=== PATIENT | female | born 1950 | race Caucasian/White ===

== ENCOUNTER 2025-06-22 08:15 | Outpatient (AMB) | payer OTHER, SELFPAY ==
--- NOTE | 2025-06-22 08:28 | A.OFFVIS_ITS ---
Intake Visit Reasons: 1 YR follow up Allergies estrogens, conjugated Allergy (Unknown, Verified 06/22/25 08:34) Unknown Medication List - Last Reconciled 06/22/25 by Belem Selby CNP hydrochlorothiazide 12.5 mg PO DAILY irbesartan 150 mg PO DAILY HPI Comments Details: She was doing okay. No new MS symptoms. Bothered by heat as she feels exhausted. Balance was off at times, but no falls. Vision was okay. Sleep was usually okay, using CPAP. She was spending weekdays at [employer] in [place] with . MRI 05/27/21 showed 6-7 lesions consistent with MS. No enhancing lesions. She was diagnosed as having mild multiple sclerosis in 1978 and had right optic neuritis in 1982 with good recovery in 3 months. Over the years, she has had episodes where the vision in the right eye goes down, some watering, and last for a month. She had an episode in 2005 and another one a few years later and has had tightness in that right RA and off-and-on blurring since December 2019 because she's been under stress, which usually triggers it. She has no other neurological complaints. She has never been treated with disease modifying therapy is for MS. [facility] Medical History (Updated 06/22/25 @ 08:33 by Belem Selby CNP) Hypertension Multiple sclerosis Optic neuritis Review of Systems Const Denies chills, Denies daytime sleepiness, Denies difficulty sleeping, Denies fatigue, Denies fever(s), Denies frequent falls, Denies headache(s), Denies increased appetite, Denies poor appetite, Denies snoring, Denies weakness, Denies weight gain and Denies weight loss Eyes Denies loss of vision ENT Denies vertigo, Denies dizziness, Denies headache(s) and Denies neck pain Card Denies chest pain at rest, Denies chest pain with activity, Denies syncope, Denies leg edema, Denies palpitations, Denies dyspnea and Denies dyspnea on exertion Resp Denies cough, Denies dyspnea, Denies dyspnea on exertion and Denies snoring GI Denies abdominal pain, Denies constipation, Denies heartburn, Denies diarrhea and Denies nausea Denies urinary frequency, Denies urinary incontinence and Denies urinary urgency Musc Denies abnormal gait, Denies back pain, Denies myalgias, Denies arthralgias, Denies neck pain, Denies numbness and Denies tingling Neuro Denies abnormal gait, Denies vertigo, Denies dizziness, Denies syncope, Denies frequent falls, Denies headache(s), Denies lack of coordination, Denies loss of vision, Denies memory loss, Denies numbness, Denies Other visual disturbances, Denies restless legs, Denies seizure-like activity, Denies tingling, Denies paresthesias, Denies tremor(s), Denies weakness and Reports other (balance difficulty) Psych Denies anxiety, Denies depression, Denies auditory hallucinations, Denies memory loss and Denies visual hallucinations Endo Denies fatigue and Denies palpitations Physical Exam Const Other: General Appearance:? normal, in no acute distress. Heart:? S1, S2 normal, no murmurs. Lungs:? clear anteriorly and posteriorly. Musculoskeletal:? normal. Extremities:? no edema. Psych:? alert, oriented, cognitive function intact, cooperative with exam. Neuro Other: Abnormal Neurological Findings:?R Vivek Ivone pupil.? Mental Status: alert and oriented X 3. Normal attention, orientation, memory, and affect. Cranial Nerves: Pupils are equal, round, and reactive to light. R Vivek Ivone pupil. External ocular muscles are intact. Visual perdue are full, no ptosis. Face is symmetrical, no facial weakness or droop. Facial sensations are normal. Tongue protrudes in midline. Palate elevates symmetrically. Shoulder shrugging is normal Motor Examination: Normal muscle tone, bulk and strength. No atrophy or fasciculations. No drift of the extended upper extremities. DTR 2+. Plantars are flexor. Sensory Exam: Normal light touch, temperature, pinprick, vibration, and joint- position sensations. Rhomberg sign is absent. Coordination: No ataxia. No titubation. Gait Exam: Within normal limits. Cerebellar Signs: [id number] is okay. Extrapyramidal System: No tremor, rigidity with normal facial expressions. No bradykinesia. No bradyphrenia. Normal arm swing and posture. No propulsion or retropulsion. Speech: Normal. Results Reviewed Results Reviewed: 05/11/20 MRI c/w MS . No enhancing lesions. 05/27/21 MRI stable 07/06/23 stable Assessment & Plan Assessment & Plan (1) Multiple sclerosis: Code(s): G35 - Multiple sclerosis Category: Medical Plan: No new symptoms. Last MRI 2022. MRI brain with and without contrast ordered. Diazepam before MRI ordered, use/side effects reviewed. (2) Optic neuritis: Code(s): H46.9 - Unspecified optic neuritis Category: Medical Plan . Orders: Orders MR head/brain wo/w con Today G35 - Multiple sclerosis Medications: New diazepam (Valium) 5 mg orally 2 tabs 2hr before MRI, may repeat at time of MRI if needed; 4 tabs 0RF 1 day Coding Level of Care Code Est Pt Level 4 (81162) Diagnoses Multiple sclerosis G35 Optic neuritis H46.9
== END 2025-06-22 08:49 | disposition home or self-care (01) ==
LOC: HO.HSM 08:16
PROVIDERS: PCP Nurse Practitioner; Referring Provider Internal Medicine; Visit Provider Registered Nurse
DX: G35 Multiple sclerosis (principal); H46.9 Unspecified optic neuritis
CPT/HCPCS: 99214